=== PATIENT | male | born 1990 | race African-American/Black ===

== ENCOUNTER 2023-10-12 14:00 | Outpatient (CLI) | payer OTHER ==
[2023-10-12 22:06] LABS: CHLAMYDIA TRACHOMATIS DNA NEGATIVE (NEGATIVE); NEISSERIA GONORRHOEAE DNA NEGATIVE (NEGATIVE); TRICHOMONAS VAGINALIS DNA NEGATIVE (NEGATIVE)
[2023-10-14 23:07] LABS: HIV SCREEN 4TH GENERATION Non Reactive (Non Reactive)
[2023-10-15 03:07] LABS: HCV AB Non Reactive (Non Reactive)
[2023-10-15 14:08] LABS: HSV 1 IGG TYPE SPEC <0.91 index (0.00-0.90); HSV 2 IGG TYPE SPEC <0.91 index (0.00-0.90)
== END 2023-10-12 14:15 | disposition home or self-care (01) ==
LOC: LAB.N 14:00
PROVIDERS: ATTEND Physician Assistant Medical
DX: Z11.3 Encounter for screening for infections with a predominantly sexual mode of transmission (principal); N48.89 Other specified disorders of penis
CPT/HCPCS: 86592; 86695; 86696; 86803; 87086; 87389; 87491; 87536; 87591; 87661